=== PATIENT | male | born 1975 | race Caucasian/White ===

== ENCOUNTER 2019-06-16 01:39 | Emergency (ER) | payer OTHER ==
[2019-06-16] MEDS ORDERED: Albuterol/Ipratropium 3.0-0.5 MG/3 ML Neb Soln NEB ONE (02:12)
--- NOTE | 2019-06-16 02:17 | EDM.PDOC ---
ED HPI GENERAL MEDICAL PROBLEM - General Chief Complaint: Respiratory Problem Stated Complaint: COUGH Time Seen by Provider: 06/16/19 02:00 Source of Information: Reports: Patient History Limitations: Reports: No Limitations - History of Present Illness INITIAL COMMENTS - FREE TEXT/NARRATIVE: 43-year-old male who was had a worsening cough for the past 5 days, had a sore throat and nasal congestion but that's improved. Tonight he was coughing so hard he couldn't sleep, he is starting to develop yellow sputum and felt chilled. No history of asthma. Onset: Gradual Duration: Day(s): (5 days) Associated Symptoms: Reports: Cough, Shortness of Breath - Related Data Allergies Allergy/AdvReac Type Severity Reaction Status Date / Time cephalexin [From Keflex] Allergy Hives Verified 06/16/19 01:56 Home Meds: Home Meds Acyclovir 400 mg PO DAILY 06/16/19 [History] Lansoprazole [Prevacid] 15 mg PO DAILY 06/16/19 [History] Sertraline [Zoloft] 100 mg PO DAILY 06/16/19 [History] Past Medical History Gastrointestinal History: Reports: GERD Musculoskeletal History: Reports: Fracture Neurological History: Reports: Migraines Psychiatric History: Reports: Anxiety, Depression Endocrine/Metabolic History: Reports: Obesity/BMI 30+ - Past Surgical History HEENT Surgical History: Reports: Adenoidectomy, Naso-Sinus Surgery, Tonsillectomy Social & Family History - Tobacco Use Smoking Status *Q: Current Every Day Smoker Years of Tobacco use: 28 Packs/Tins Daily: 0.2 - Caffeine Use Caffeine Use: Reports: Coffee, Energy Drinks, Soda - Recreational Drug Use Recreational Drug Use: No ED ROS GENERAL - Review of Systems Review Of Systems: See Below Constitutional: Reports: Chills, Malaise HEENT: Reports: Rhinitis, Throat Pain Respiratory: Reports: Shortness of Breath, Wheezing, Cough, Sputum Cardiovascular: Denies: Chest Pain GI/Abdominal: Denies: Nausea, Vomiting Skin: Reports: No Symptoms Neurological: Denies: Headache ED EXAM, GENERAL - Physical Exam Exam: See Below Exam Limited By: No Limitations General Appearance: Alert, No Apparent Distress, Other (Looks uncomfortable but not distressed) Head: Atraumatic Respiratory/Chest: No Respiratory Distress, Wheezing (Diffuse expiratory wheezing, no rales or rhonchi) Cardiovascular: Regular Rate, Rhythm Neurological: Alert, Oriented Psychiatric: Normal Affect, Normal Mood Skin Exam: Warm, Dry Course - Vital Signs Last Recorded V/S: Last Vital Signs Temp 97.4 F 06/16/19 02:03 Pulse 97 06/16/19 02:03 Resp 22 H 06/16/19 02:03 BP 114/70 06/16/19 02:03 Pulse Ox 93 L 06/16/19 02:03 - Orders/Labs/Meds Meds: Medications Discontinued Medications Generic Name Dose Route Start Last Admin Trade Name Juan Manuel PRN Reason Stop Dose Admin Albuterol/Ipratropium 3 ml 06/16/19 02:12 06/16/19 02:16 Duoneb 3.0-0.5 Mg/3 Ml NEB 06/16/19 02:13 3 ml ONETIME ONE Administration - Re-Assessments/Exams Free Text/Narrative Re-Assessment/Exam: 06/16/19 02:15 Patient was given a DuoNeb to relieve some of his bronchoconstriction. He'll be placed on 60 mg of prednisone daily for 5 consecutive days, along with a course of Zithromax to cover atypicals. Recheck in 2-3 days if not improving satisfactorily. Departure - Departure Time of Disposition: 02:28 Disposition: Home, Self-Care 01 Clinical Impression: Bronchitis - Discharge Information Instructions: Acute Bronchitis, Adult, [id number] Referrals: PCP,None [Primary Care Provider] - Forms: ED Department Discharge Care Plan Goals: Take 6 pills of prednisone with food daily for 5 consecutive days. Also take the course of Zithromax as prescribed. Consider rechecking in 2-3 days if not improving satisfactorily. Get plenty of rest and fluids.
== END 2019-06-16 02:27 | disposition home or self-care (01) ==
LOC: JP.ED 01:39
DX: J40 Bronchitis, not specified as acute or chronic (principal); E66.9 Obesity, unspecified; K21.9 Gastro-esophageal reflux disease without esophagitis; F41.9 Anxiety disorder, unspecified; F32.9 Major depressive disorder, single episode, unspecified; F17.210 Nicotine dependence, cigarettes, uncomplicated; Z79.899 Other long term (current) drug therapy; Z68.34 Body mass index [BMI] 34.0-34.9, adult
CPT/HCPCS: 94640; 99284-25; J7620-GY

== ENCOUNTER 2020-11-07 09:08 | Emergency (ER) | payer OTHER ==
[2020-11-07] MEDS ORDERED: Dexamethasone 4 MG/ML SDV PO ONE (09:31)
--- NOTE | 2020-11-07 09:34 | EDM.PDOC ---
ED HPI GENERAL MEDICAL PROBLEM - General Chief Complaint: ENT Problem Stated Complaint: SORE THROAT Time Seen by Provider: 11/07/20 09:24 Source of Information: Reports: Patient, RN Notes Reviewed History Limitations: Reports: No Limitations - History of Present Illness INITIAL COMMENTS - FREE TEXT/NARRATIVE: 45-year-old gentleman presents emergency department today with complaint of swollen over the left, he states his been ill for about 10 days cold-like symptoms runny nose sinus congestion that slowly is improving he has been snoring more than usual but this morning he noticed his uvula was markedly inflamed, no sore throat no difficulty breathing - Related Data Allergies Allergy/AdvReac Type Severity Reaction Status Date / Time cephalexin [From Keflex] Allergy Hives Verified 11/07/20 09:17 Home Meds: Home Meds Acyclovir 400 mg PO DAILY 06/16/19 [History] Lansoprazole [Prevacid] 15 mg PO DAILY 06/16/19 [History] Sertraline [Zoloft] 100 mg PO DAILY 06/16/19 [History] Varenicline Tartrate [Chantix] 1 tab PO DAILY 11/07/20 [History] Past Medical History Gastrointestinal History: Reports: GERD Musculoskeletal History: Reports: Fracture Neurological History: Reports: Migraines Psychiatric History: Reports: Anxiety, Depression Endocrine/Metabolic History: Reports: Obesity/BMI 30+ - Infectious Disease History Infectious Disease History: Reports: Chicken Pox - Past Surgical History Head Surgeries/Procedures: Reports: None HEENT Surgical History: Reports: Adenoidectomy, Naso-Sinus Surgery, Tonsillectomy GI Surgical History: Reports: None Endocrine Surgical History: Reports: None Neurological Surgical History: Reports: None Musculoskeletal Surgical History: Reports: None Dermatological Surgical History: Reports: None Social & Family History - Tobacco Use Tobacco Use Status *Q: Former Tobacco User Used Tobacco, but Quit: Yes Month/Year Tobacco Last Used: 10/2020 Second Hand Smoke Exposure: No - Caffeine Use Caffeine Use: Reports: Coffee - Recreational Drug Use Recreational Drug Use: No ED ROS ENT - Review of Systems Review Of Systems: See Below Constitutional: Denies: Fever, Chills HEENT: Reports: Rhinitis, Sinus Problem, Other (Uvula swelling). Denies: Throat Pain, Throat Swelling Respiratory: Reports: No Symptoms Cardiovascular: Reports: No Symptoms ED EXAM, ENT - Physical Exam Exam: See Below Exam Limited By: No Limitations General Appearance: Alert, WD/WN, No Apparent Distress Mouth/Throat: Normal Inspection, Normal Gums, Normal Lips, Normal Oropharynx, Normal Teeth, Uvular Edema Neck: Normal Inspection, Supple, Non-Tender, Full Range of Motion Respiratory/Chest: No Respiratory Distress, Lungs Clear, Normal Breath Sounds, No Accessory Muscle Use, Chest Non-Tender Cardiovascular: Regular Rate, Rhythm, No Murmur Course - Vital Signs Last Recorded V/S: Last Vital Signs Temp 96.6 F L 11/07/20 09:22 Pulse 75 11/07/20 09:22 Resp 17 11/07/20 09:22 BP 139/94 H 11/07/20 09:22 Pulse Ox 97 11/07/20 09:22 Departure - Departure Time of Disposition: 09:32 Disposition: Home, Self-Care 01 Condition: Fair Clinical Impression: Uvulitis - Discharge Information Instructions: Uvulitis Referrals: Nathaniel Cole MD [Primary Care Provider] - Additional Instructions: Please followup with your primary care provider in 3-5 days if not better, please call return to the emergency department with worsening of symptoms. Sepsis Event Note (ED) - Evaluation Sepsis Screening Result: No Definite Risk - Focused Exam Vital Signs: Vital Signs Temp Pulse Resp BP Pulse Ox 11/07/20 09:22 96.6 F L 75 17 139/94 H 97 11/07/20 09:18 96.6 F L 75 17 139/94 H 97 - Assessment/Plan Plan: Assessment Acuity = acute Site and laterality = uvulitis Etiology = probably related to trauma with snoring Manifestations = none Location of injury = Home Lab values = none Plan Like to treat empirically dexamethasone 10 mg x 1 follow-up primary care as needed This note was dictated using [employer] recognition software please call with any questions on syntax or grammar.
== END 2020-11-07 09:42 | disposition home or self-care (01) ==
LOC: JP.ED 09:08
DX: K12.2 Cellulitis and abscess of mouth (principal); K21.9 Gastro-esophageal reflux disease without esophagitis; E66.9 Obesity, unspecified; Z68.41 Body mass index [BMI] 40.0-44.9, adult; Z87.891 Personal history of nicotine dependence; Z88.1 Allergy status to other antibiotic agents; Z79.899 Other long term (current) drug therapy
CPT/HCPCS: 99283; J1100

== ENCOUNTER 2023-07-23 20:53 | Emergency (ER) | payer BC, OTHER ==
[2023-07-23 22:07] LABS: CORONAVIRUS COVID-19 NAA NEGATIVE (NEGATIVE); INFLUENZA A NAA NEGATIVE (NEGATIVE); INFLUENZA B NAA NEGATIVE (NEGATIVE); RESPIRATORY SYNCYTIAL VIR NAA NEGATIVE (NEGATIVE)
== END 2023-07-23 21:38 | disposition home or self-care (01) ==
LOC: JP.ED 20:53
DX: J40 Bronchitis, not specified as acute or chronic (principal); E66.9 Obesity, unspecified; Z87.891 Personal history of nicotine dependence; Z20.822 Contact with and (suspected) exposure to COVID-19; Z79.899 Other long term (current) drug therapy; Z88.1 Allergy status to other antibiotic agents; Z68.36 Body mass index [BMI] 36.0-36.9, adult
CPT/HCPCS: 0241U; 99283; 99284

== ENCOUNTER 2024-07-09 18:26 | Emergency (ER) | payer BC ==
[2024-07-09 18:57] LABS: BASOPHILS ABSOLUTE AUTO 0.12 K/uL (0.00-0.10); BASOPHILS PERCENT AUTO 0.9 % (0.1-1.3); EOSINOPHILS ABSOLUTE AUTO 0.18 K/uL (0.00-0.40); EOSINOPHILS PERCENT AUTO 1.4 % (0.0-5.4); HEMATOCRIT 47.2 % (38.4-49.7); HEMOGLOBIN 16.5 g/dL (12.9-16.9); IMMATURE GRAN ABSOLUTE AUTO 0.05 K/uL (0.00-0.23); IMMATURE GRAN PERCENT AUTO 0.4 % (0.0-0.7); LYMPHOCYTES ABSOLUTE AUTO 3.21 K/uL (0.8-3.3); LYMPHOCYTES PERCENT AUTO 24.6 % (11.4-47.7); MEAN CORPUSCULAR HEMOGLOBIN 29.3 pg (31.6-35.5); MEAN CORPUSCULAR VOLUME 83.8 fL (81.4-99.0); MONOCYTES ABSOLUTE AUTO 0.64 K/uL (0.20-0.90); MONOCYTES PERCENT AUTO 4.9 % (3.3-12.6); NEUTROPHILS ABSOLUTE AUTO 8.84 K/uL (1.0-7.6); NEUTROPHILS PERCENT AUTO 67.8 % (40.0-78.1); PLATELET COUNT,PLT 368 K/uL (130-375); RED BLOOD CELL COUNT 5.63 M/uL (4.14-5.76)
[2024-07-09] MEDS: Lactated Ringers 1,000 ML IV ONE (18:58)
[2024-07-09] MEDS: Ondansetron 4 MG/2 ML SDV IVPUSH ONE (18:58)
[2024-07-09] MEDS: Sodium Chloride 0.9% 10 ML Syringe FLUSH PRN (18:58)
[2024-07-09 19:12] LABS: CALCIUM 10.5 mg/dL (8.5-10.1); CREATININE 1.4 mg/dL (0.8-1.3); EST CRCL DRUG DOSING (CG) 69.29 mL/min
== END 2024-07-09 20:36 | disposition home or self-care (01) ==
LOC: JP.ED 18:26
DX: K52.9 Noninfective gastroenteritis and colitis, unspecified (principal); K21.9 Gastro-esophageal reflux disease without esophagitis; E66.9 Obesity, unspecified; Z79.899 Other long term (current) drug therapy; Z88.1 Allergy status to other antibiotic agents; Z68.35 Body mass index [BMI] 35.0-35.9, adult
CPT/HCPCS: 36415; 80048; 83605; 84145; 85025; 86140; 96361; 96374; 99283; 99284; J2405; J3490; J7120